=== PATIENT | female | born 1975 | race Caucasian/White ===

== ENCOUNTER 2020-12-19 20:44 | Emergency (ER) | payer OTHER ==
[2020-12-19] MEDS ORDERED: Sodium Chloride 0.9% 2.5 ML Syringe FLUSH PRN (21:41)
[2020-12-19] MEDS ORDERED: Sodium Chloride 0.9% 1,000 ML IV ONE (21:41)
[2020-12-19] MEDS ORDERED: Sodium Chloride 0.9% 10 ML Syringe FLUSH PRN (21:41)
[2020-12-19] MEDS ORDERED: Ondansetron 4 MG/2 ML SDV IVPUSH ONE (21:41)
[2020-12-19] MEDS ORDERED: fentaNYL 50 MCG/ML SDV IVPUSH ONE (21:41)
[2020-12-19 21:56] LABS: BLOOD UREA NITROGEN,BUN 24 mg/dL (7.0-18.0); CARBON DIOXIDE,CO2 23.7 mmol/L (21.0-32.0); CHLORIDE,CL 104 mmol/L (98-107); GLUCOSE RANDOM 106 mg/dL (74-106); LIPASE 80 U/L (73-393); POTASSIUM,K 3.8 mmol/L (3.5-5.1); SODIUM,NA 140 mmol/L (136-145)
[2020-12-19] MEDS ORDERED: Iopamidol 755 MG/ML 500 ML Multipack Bottle IVPUSH STA (23:13)
[2020-12-19] MEDS: Ondansetron 4 MG/2 ML SDV IVPUSH ONE (23:36)
[2020-12-19] MEDS: HYDROmorphone 1 MG/ML Syringe IVPUSH ONE (23:36)
--- NOTE | 2020-12-19 23:55 | CT ---
INDICATION: Abdominal pain, vomiting, history bariatric surgery, history bowel obstruction. TECHNIQUE: CT Abdomen and pelvis with i.v. contrast. Coronal and sagittal reformats were obtained. Oral contrast was administered for the examination. CONTRAST: 100 mL Isovue 370 COMPARISON: None FINDINGS: Lower chest: There is a 3 mm nodule present in the posterior right upper lobe, too small to further characterize. A 3-4 calcified granuloma is present the lower lobe. Liver: Unremarkable. Spleen: Unremarkable. Pancreas: Unremarkable. Gallbladder: Previous cholecystectomy noted without significant intra- or extrahepatic biliary ductal dilatation seen. Kidney: Unremarkable. No kidney or ureteral stones or obstruction seen. Adrenal: Unremarkable. Bowel: Previous antegastric-antecolic gastric bypass noted with no definite obstruction of the biliopancreatic limb or She-en-Y loop seen. The appendix is normal in appearance and size. Vascular: Unremarkable. Lymph: Unremarkable. Peritoneum: Unremarkable. No pneumoperitoneum is seen. No significant ascites is noted. Pelvis: Unremarkable. Soft tissue: Unremarkable. Bone: Unremarkable for age. IMPRESSION: 1. Unremarkable with no CT correlate for the patient`s symptoms seen. Dictated by Carrillo Tolbert MD @ 12/19/2020 11:54:29 PM Please note that all CT scans at this facility use dose modulation, iterative reconstruction, and/or weight-based dosing when appropriate to reduce radiation dose to as low as reasonably achievable. Dictated by: Carrillo Tolbert MD @ 12/19/2020 23:54:39 (Electronically Signed)
[2020-12-20] MEDS: HYDROmorphone 1 MG/ML Syringe IVPUSH ONE (00:05)
[2020-12-20] MEDS: Ondansetron 4 MG/2 ML SDV IVPUSH ONE (00:08)
--- NOTE | 2020-12-20 00:17 | EDM.PDOC ---
ED HPI GENERAL MEDICAL PROBLEM - General Chief Complaint: Gastrointestinal Problem Stated Complaint: ABDOMINAL PAIN, VOMITTING Time Seen by Provider: 12/19/20 21:17 - History of Present Illness INITIAL COMMENTS - FREE TEXT/NARRATIVE: HISTORY AND PHYSICAL: History of present illness: This is a 45-year-old female who presents ER today complaining of abdominal pain x2 to 3 days. Patient reports that she has a history of for bariatric surgery many years ago but has had complications of small bowel obstructions that have required multiple surgeries in the past. Patient is status post cholecystectomy but has not had an appendectomy in the past. Patient denies any recent fevers, shakes, chills. Patient has had nausea and vomiting x2. Patient complains of some diarrhea. Patient denies any dysuria, frequency, urgency, hematuria. Patient reports no chest pain or shortness of breath. Patient reports that the pain increased this evening and so came to the ER for further evaluation. Patient reports the pain is around the midepigastric region. Patient reports the pain is similar to what she has had she had small bowel obstructions in the past. Review of systems: As per history of present illness and below otherwise all systems reviewed and negative. Past medical history: As per history of present illness and as reviewed below otherwise noncontributory. Surgical history: As per history of present illness and as reviewed below otherwise noncontributory. Social history: No reported history of drug or alcohol abuse. Family history: As per history of present illness and as reviewed below otherwise non contributory. Physical exam: This patient was seen and evaluated during the 2019 SARS-CoV-2 novel coronavirus pandemic period. Community viral transmission is ongoing at time of this encounter and the emergency department is operating under pandemic response procedures. Constitutional: Patient is oriented to person, place, and time. Appears well- developed and well-nourished. No distress. HEENT: Moist mucous membranes Head: Normocephalic and atraumatic Eyes: Right eye exhibits no discharge. Left eye exhibits no discharge. No scleral icterus Neck: Normal range of motion. No tracheal deviation present. Cardiovascular: Normal rate and regular rhythm. Pulmonary: Effort normal, no respiratory distress. Abd: Soft, nondistended, no rebound/guarding, no psoas or obturator signs, no tenderness at Mcberney's point, no Jones's sign. Pt does not present with an exam that would be consistent with an acute surgical abdomen at this time. Mild midepigastric tenderness to palpation. Musculoskeletal: Normal range of motion Neurologic: Alert and oriented to person, place and time. Skin: [place], warm and dry. Psychiatric: Normal mood and affect. Behavior is normal. Judgment and thought content normal. Nursing note and vital signs have been reviewed Diagnostics: CT scan of the abdomen pelvis with IV and p.o. contrast. Unremarkable with no CT correlation for the patient's symptoms are identified per radiology. CBC, CMP, UA within normal limits. Therapeutics: Dilaudid 1 mg IM, fentanyl one hundred mics IV, Zofran 4 mg IV. Assessment and plan: This is a 45-year-old female who is status post bariatric surgery who presents ER today complaining of abdominal pain. Patient's work-up in the ER reveals a normal CT scan as well as labs. Patient was given adequate analgesia here in the ED. The etiology of the patient's pain is unclear however no acute emergent source was identified by CT scan or labs. Patient will be discharged home with instructions to follow-up with her primary care physician in the morning for reevaluation. Reassessment at the time of disposition demonstrates that the patient is in no acute distress. The patient has remained stable throughout the entire ED visit and is without objective evidence for acute process requiring urgent intervention or hospitalization. The patient is stable for discharge, counseling is provided as documented above, discussed symptomatic treatment and specific conditions for return. I have spoken with the patient/caregiver and discussed todays findings, in addition to providing specific details for the plan of care. Questions are answered and there is agreement with the plan. Definitive disposition and diagnosis as appropriate pending reevaluation and review of above. Mid upper abdomen Pain Score (Numeric/FACES): 7 - Related Data Allergies Allergy/AdvReac Type Severity Reaction Status Date / Time amoxicillin [From Augmentin] Allergy Hives Verified 12/19/20 21:15 clavulanic acid Allergy Hives Verified 12/19/20 21:15 [From Augmentin] lorazepam [From Ativan] Allergy Hives Verified 12/19/20 21:15 metoclopramide [From Reglan] Allergy Change Verified 12/19/20 21:15 Mental Status NSAIDS (Non-Steroidal Allergy Other Verified 12/19/20 21:15 Anti-Inflamma pregabalin [From Lyrica] Allergy Change Verified 12/19/20 21:15 Mental Status prochlorperazine Allergy Change Verified 12/19/20 21:15 [From Compazine] Mental Status Home Meds: Home Meds Hydroxychloroquine [Plaquenil] 12/19/20 [History] Non-Formulary Medication [NF Drug] 12/19/20 [History] Ondansetron [Zofran ODT] 4 mg PO Q6H PRN #12 tab.dis 12/20/20 [Rx] Past Medical History Musculoskeletal History: Reports: Fibromyalgia Other Immunologic History: Lupus - Infectious Disease History Infectious Disease History: Reports: Chicken Pox - Past Surgical History GI Surgical History: Reports: Bariatric Procedure Social & Family History - Family History Family Medical History: No Pertinent Family History - Tobacco Use Tobacco Use Status *Q: Never Tobacco User - Caffeine Use Caffeine Use: Reports: Soda - Recreational Drug Use Recreational Drug Use: No ED ROS GENERAL - Review of Systems Review Of Systems: See Below ED EXAM, GENERAL - Physical Exam Exam: See Below Course - Vital Signs Last Recorded V/S: Last Vital Signs Temp 97.6 F 12/19/20 21:07 Pulse 63 12/19/20 22:34 Resp 18 12/19/20 22:34 BP 136/56 L 12/19/20 22:34 Pulse Ox 98 12/19/20 22:34 - Orders/Labs/Meds Orders: Active Orders 24 hr Category Date Time Status Sodium Chloride 0.9% [Saline Flush] Med 12/19/20 21:41 Active 10 ml FLUSH ASDIRECTED PRN Sodium Chloride 0.9% [Saline Flush] Med 12/19/20 21:41 Active 2.5 ml FLUSH ASDIRECTED PRN Saline Lock Insert [OM.PC] Stat Oth 12/19/20 21:41 Ordered Medication Orders Sodium Chloride (Sodium Chloride 0.9% 10 Ml Syringe) 10 ml FLUSH ASDIRECTED PRN PRN Reason: Keep Vein Open Last Admin: 12/19/20 21:50 Dose: 10 ml Documented by: JU Sodium Chloride (Sodium Chloride 0.9% 2.5 Ml Syringe) 2.5 ml FLUSH ASDIRECTED PRN PRN Reason: Keep Vein Open Last Admin: 12/19/20 21:50 Dose: 2.5 ml Documented by: JU Labs: Laboratory Tests 12/19/20 12/19/20 12/19/20 Range/Units 21:12 21:12 23:34 WBC 5.70 (4.0-11.0) K/uL RBC 4.05 L (4.30-5.90) M/uL Hgb 11.8 L (12.0-16.0) g/dL Hct 35.1 L (36.0-46.0) % MCV 86.7 (80.0-98.0) fL MCH 29.1 (27.0-32.0) pg MCHC 33.6 (31.0-37.0) g/dL RDW Std Deviation 43.5 (28.0-62.0) fl RDW Coeff of Suzanne 14 (11.0-15.0) % Plt Count 256 (150-400) K/uL MPV 9.80 (7.40-12.00) fL Neut % (Auto) 59.1 (48.0-80.0) % Lymph % (Auto) 32.8 (16.0-40.0) % [place] % (Auto) 6.5 (0.0-15.0) % Eos % (Auto) 1.4 (0.0-7.0) % Baso % (Auto) 0.2 (0.0-1.5) % Neut # (Auto) 3.4 (1.4-5.7) K/uL Lymph # (Auto) 1.9 (0.6-2.4) K/uL [place] # (Auto) 0.4 (0.0-0.8) K/uL Eos # (Auto) 0.1 (0.0-0.7) K/uL Baso # (Auto) 0.0 (0.0-0.1) K/uL Nucleated RBC % 0.0 /100WBC Nucleated RBCs # 0 K/uL Sodium 140 (136-145) mmol/L Potassium 3.8 (3.5-5.1) mmol/L Chloride 104 (98-107) mmol/L Carbon Dioxide 23.7 (21.0-32.0) mmol/L BUN 24 H (7.0-18.0) mg/dL Creatinine 0.9 (0.6-1.0) mg/dL Est Cr Clr Drug Dosing 65.30 mL/min Estimated GFR (MDRD) > 60.0 ml/min Glucose 106 (74-106) mg/dL Calcium 8.3 L (8.5-10.1) mg/dL Total Bilirubin 0.6 (0.2-1.0) mg/dL AST 21 (15-37) IU/L ALT 30 (14-63) IU/L Alkaline Phosphatase 198 H (46-116) U/L Total Protein 7.6 (6.4-8.2) g/dL Albumin 3.6 (3.4-5.0) g/dL Globulin 4.0 (2.6-4.0) g/dL Albumin/Globulin Ratio 0.9 (0.9-1.6) Lipase 80 (73-393) U/L Urine Color YELLOW Urine Appearance CLEAR Urine pH 5.5 (5.0-8.0) Ur Specific [place] 1.020 (1.001-1.035) Urine Protein NEGATIVE (NEGATIVE) mg/dL Urine Glucose (UA) NEGATIVE (NEGATIVE) mg/dL Urine Ketones NEGATIVE (NEGATIVE) mg/dL Urine Occult Blood NEGATIVE (NEGATIVE) Urine Nitrite NEGATIVE (NEGATIVE) Urine Bilirubin NEGATIVE (NEGATIVE) Urine Urobilinogen 0.2 (<2.0) EU/dL Ur Leukocyte Esterase NEGATIVE (NEGATIVE) Meds: Medications Generic Name Dose Route Start Last Admin Trade Name Freq PRN Reason Stop Dose Admin Sodium Chloride 10 ml 12/19/20 21:41 12/19/20 21:50 Sodium Chloride 0.9% 10 Ml Syringe FLUSH 10 ml ASDIRECTED PRN Administration Keep Vein Open Sodium Chloride 2.5 ml 12/19/20 21:41 12/19/20 21:50 Sodium Chloride 0.9% 2.5 Ml Syringe FLUSH 2.5 ml ASDIRECTED PRN Administration Keep Vein Open Discontinued Medications Generic Name Dose Route Start Last Admin Trade Name Freq PRN Reason Stop Dose Admin Fentanyl 100 mcg 12/19/20 21:41 12/19/20 21:47 Fentanyl 50 Mcg/Ml Sdv IVPUSH 12/19/20 21:42 100 mcg ONETIME ONE Administration Hydromorphone HCl 1 mg 12/19/20 23:26 12/20/20 00:05 Hydromorphone 1 Mg/Ml Syringe IVPUSH 12/19/20 23:27 Not Given ONETIME ONE Sodium Chloride 1,000 mls @ 999 mls/hr 12/19/20 21:41 12/19/20 21:46 Normal Saline IV 12/19/20 22:41 999 mls/hr .Bolus ONE Administration Iopamidol 100 ml 12/19/20 23:13 12/19/20 23:13 Iopamidol 755 Mg/Ml 500 Ml Multipack Bottle IVPUSH 12/19/20 23:14 100 ml ONETIME STA Administration Ondansetron HCl 4 mg 12/19/20 21:41 12/19/20 21:49 Ondansetron 4 Mg/2 Ml Sdv IVPUSH 12/19/20 21:42 4 mg ONETIME ONE Administration Ondansetron HCl 4 mg 12/19/20 23:26 12/20/20 00:08 Ondansetron 4 Mg/2 Ml Sdv IVPUSH 12/19/20 23:27 Not Given ONETIME ONE Departure - Departure Time of Disposition: 00:15 Disposition: Home, Self-Care 01 Condition: Good Clinical Impression: Abdominal pain - Discharge Information Instructions: Abdominal Pain, Adult, Bariatric Surgery Information Referrals: PCP,Not In Area [Primary Care Provider] - Additional Instructions: Your seen and evaluated in the ER today secondary to pain in your stomach. Given your history of bariatric surgery and multiple bowel structure in the past, a CT scan of your abdomen pelvis was performed. This was performed utilizing both IV contrast and oral contrast. The CT scan of the abdomen pelvis did not reveal any evidence of obstruction or other abnormalities that would explain your discomfort. At this time, the etiology of your pain is unclear however no acute emergent causes have been identified with a test that we have access to in the ED. Given that your blood tests and CT scan are both normal, I believe that you should be safe to go home and resume a bland diet for the next 1 to 2 days. Please make an appointment to see your doctor on Monday to be reevaluated. You will be sent home with a prescription for Zofran to assist you with your nausea. The following information is given to patients seen in the emergency department who are being discharged to home. This information is to outline your options for follow-up care. We provide all patients seen in our emergency department with a follow-up referral. The need for follow-up, as well as the timing and circumstances, are variable depending upon the specifics of your emergency department visit. If you don't have a primary care physician on staff, we will provide you with a referral. We always advise you to contact your personal physician following an emergency department visit to inform them of the circumstance of the visit and for follow-up with them and/or the need for any referrals to a consulting specialist. The emergency department will also refer you to a specialist when appropriate. This referral assures that you have the opportunity for follow-up care with a specialist. All of these measure are taken in an effort to provide you with optimal care, which includes your follow-up. Under all circumstances we always encourage you to contact your private physician who remains a resource for coordinating your care. When calling for follow-up care, please make the office aware that this follow-up is from your recent emergency room visit. If for any reason you are refused follow-up, please contact the [facility] Emergency Department at and asked to speak to the emergency department charge nurse. [facility] - [facility] [address] [place] [address] [place] [address] Sepsis Event Note (ED) - Evaluation Sepsis Screening Result: No Definite Risk - Focused Exam Vital Signs: Vital Signs Temp Pulse Resp BP Pulse Ox 12/19/20 22:34 63 18 136/56 L 98 12/19/20 21:07 97.6 F 84 22 H 149/90 H 96 - My Orders Last 24 Hours: My Active Orders 12/19/20 21:41 Sodium Chloride 0.9% [Saline Flush] 10 ml FLUSH ASDIRECTED PRN Sodium Chloride 0.9% [Saline Flush] 2.5 ml FLUSH ASDIRECTED PRN Saline Lock Insert [OM.PC] Stat - Assessment/Plan Last 24 Hours: My Active Orders 12/19/20 21:41 Sodium Chloride 0.9% [Saline Flush] 10 ml FLUSH ASDIRECTED PRN Sodium Chloride 0.9% [Saline Flush] 2.5 ml FLUSH ASDIRECTED PRN Saline Lock Insert [OM.PC] Stat
[2020-12-20] MEDS ORDERED: HYDROmorphone 1 MG/ML Syringe IM ONE (00:29)
== END 2020-12-20 00:34 | disposition home or self-care (01) ==
LOC: MW.ED 20:44
DX: R10.13 Epigastric pain (principal); R11.2 Nausea with vomiting, unspecified; R19.7 Diarrhea, unspecified; Z88.0 Allergy status to penicillin; Z88.1 Allergy status to other antibiotic agents; Z88.6 Allergy status to analgesic agent; Z88.8 Allergy status to other drugs, medicaments and biological substances; Z98.84 Bariatric surgery status; Z90.49 Acquired absence of other specified parts of digestive tract
CPT/HCPCS: 36415; 74177; 80053; 81003; 83690; 85025; 96372; 96374; 96375; 99285; J1170; J2405; J3010; J7030; Q9967; 99283

== ENCOUNTER 2023-12-23 14:33 | Emergency (ER) | payer SELFPAY | END 2023-12-23 15:32 | disposition home or self-care (01) | LOC: MERGE 14:33 → EDBD 14:33 → MW.ED 14:33 | DX: Z13.9 Encounter for screening, unspecified (principal); Z76.0 Encounter for issue of repeat prescription; Z75.8 Other problems related to medical facilities and other health care | CPT/HCPCS: 99282; 99283 ==